=== PATIENT | male | born 1945 | race Caucasian/White ===

== ENCOUNTER 2019-01-06 00:01 | Inpatient (IN) | payer OTHER, BC ==
[~2019-01-06] VITALS: Ht 190.5 cm; Wt 71.7 kg
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
[~2019-01-06 00:01] MED LIST: ASPIR 8181 MG PO; CARVEDILOL25 MG PO; LOPRESSOR25 PO
[2019-01-06] MEDS ORDERED: CELEXA20 MG PO (00:56)
[2019-01-06] MEDS ORDERED: NAMENDA 10 MG T10 MG PO (00:58)
[2019-01-06] MEDS ORDERED: MIRALAX17 GM PO (00:59)
[2019-01-06] MEDS ORDERED: SENNA8.6 MG PO (01:01)
[2019-01-06] MEDS ORDERED: VITAMIN B-12500 MCG PO (01:03)
[2019-01-06] MEDS ORDERED: TRAMADOL 50 MG50 MG PO (01:04)
[2019-01-06] MEDS ORDERED: TYLENOL EXTRA500 MG PO (01:05)
[2019-01-06] MEDS ORDERED: ATIVAN0.5 MG PO (01:07)
[2019-01-06] MEDS ORDERED: NITROGLYCERIN0.4 MG SUBLING (01:09)
[2019-01-06] MEDS ORDERED: IBUPROFEN 200200 M1 PO (01:13)
--- NOTE | 2019-01-06 02:03 | NUR ---
ADMISSION NOTE; THE PT CAME FROM [facility] VIA AMBULANCE, WITH HIS FAMILY ATTENDING. THE PT IS HERE WITH LEWY BODY DEMENTIA, WHICH HE WAS DIAGNOSED WITH 4 YEARS AGO. HE HAS HAD 2 RECENT FALLS WITHIN THE LAST WEEK. LOST 12 POUNDS WITHIN THE LAST 3 MONTHS. THE PT HAS TO BE FED AT MEAL TIME. THE PT HAS TREMORS AND CAN BECOME AGITATED WITH STAFF AND PEERS. HE IS INCONTINENT AT TIMES. HAS HIS OWN TEETH. THE PT CAME FROM [facility], WHERE HE HAS BEEN FOR A FEW MONTHS, WHEN THIS EMBOSSING PRESS OPERATOR GOT REPORT FROM [facility], THEY STATED THAT HE WOULD BE ABLE TO RETURN TO [facility]. THE PT'S SKIN LOOKS GOOD, HE DOES HAVE FUNGUS ON SEVERAL OF HIS TOES, BOTH FEET. HE IS A RETIRED DOCTOR. PREFERS TO BE CALLED DR. HUDSON. STARTED ON 12 MINUTE CHECKS FOR HIS SAFETY AND APPLIED THE BED ALARM.
[2019-01-06 05:02] VITALS: BP 138/85
[2019-01-06 09:53] VITALS: BP 143/75
--- NOTE | 2019-01-06 14:54 | NUR ---
PATIENT WAS UP AND OUT, SITTING IN DAY ROOM WHEN CARE ASSUME. HE TOOK ALL HIS MORNING MEDICATION WHOLE WITH LOTS OF ENCOURAGMENT FROM STAFF. PATIENT ATE 100% BREAKFAST, SAT IN MORNING GROUP ACTIVITY. PATIENT TOOK INTERMITTENT NAPS THIS MORNING. WHEN FULLY AWAKEN, PATIENT BECAME RESTLESS, PACING AROUND THE UNIT, EXIT SEEKING, STANDING BY THE EXIT DOOR, REFUSES TO LEAVE. PATIENT DECLINE LUNCH, DESPITE ENCOURAGEMENT FROM STAFF. PATIENT BECAME VERY DIFFICULT TO REDIRECT, HE BECAME IRRITABLE AND AGITATED, ATTEMPTING TO SWING AT STAFF. DR. RAINEY PRESENT, GAVE ONE TIME ORDER FOR IM GEODON 10MG. GEODON GIVEN TO LEFT HIP WELL TOLERATED. PATIENT CURRENTLY IN BED FIDGETING, RESPONDING TO INTERNAL STIMULI, TALKING TO SELF AND UNSEEN OTHERS. PATIENT IS UNABLE TO RESPOND APPROPRIATELY TO ASSESSMENT QUESTION DUE TO COGNITIVE IMPAIRMENT. PATIENT IS GROSSLY CONFUSED. WILL CONTINUE TO REDIRECT, AND MONITOR FOR SAFETY.
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
[2019-01-06 19:37] VITALS: BP 120/85
--- NOTE | 2019-01-06 21:46 | NUR ---
ASSUMED CARE OF THE PT AT 191 PM. THE PT WAS SITTING IN THE DAYROOM. REMAINS ON A 1;1 WHEN AWAKE. DISORIENTED X 4. BARELY SPEAKS, TOOK HIS MEDICATION CRUSHED IN ICE CREAM. INCONT. X 1 THIS EVENING. GOT THE PT TO BED WITH THE ASSISTANCE OF ONE, THE PT STOOD UP ON HIS OWN AND WAS ASSISTED TO BED.
--- NOTE | 2019-01-07 02:49 | NUR ---
THE PT APPEARS TO HAVE BEEN SLEEPING MOST OF THE NOC SHIFT, AFTER THE PT WENT TO BED, HE APPEARED TO BE RIGHT TO SLEEP. REMAINS ON 12 MINUTE CHECKS FOR HIS SAFETY.
--- NOTE | 2019-01-07 03:25 | NUR ---
ASSISTED THE PT TO THE BATHROOM WITH THE ASSISTANCE OF TWO, THE PT DID NOT VOID AT THIS TIME. ASSISTED HIM BACK TO BED. HE CLOSED HIS EYES AND APPEARED TO GO TO SLEEP.
--- NOTE | 2019-01-07 06:11 | NUR ---
THE PT SLEPT 7.6 HOURS LAST NIGHT.
[2019-01-07 07:37] VITALS: BP 127/83
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
--- NOTE | 2019-01-07 13:26 | NUR ---
ASSUMED PATIENT CARE AT 0700; PATIENT IN BED,SUPINE POSITION, EYES CLOSED, RESTING COMFORTABLY. PATIENT BEGAN TRYIN TO HIT AIDES THAT WERE ATTEMPTING TO CHANGE HIS WET BRIEF. HE REFUSED TO COOPERATE WITH STAFF, STRIKING THEM AT TIMES. THEN BEGAN TO SCREAM LOUDLY WITHOUT CAUSE. NEW ORDER PER PER FARRAH HENNING 15 MG I.M. stat. SEE EMAR FOR EXACT TIME. PATIENT IMMEDIATELY BECAME DROWSY; LYING IN BED QUIETLY EVER SINCE I.M. CONTINUE TO MONITOR 1:1.
--- NOTE | 2019-01-07 15:00 | NUR ---
PT BLADDER SCANNED AND HAD 820ML URINE IN BLADDER. ATTEMPTED TO STRAIGHT CATH WITH ASSIST FROM AND NURSE AID. PT WAS YELLING AND TRYING TO BITE THE STAFF. UNABLE TO INSERT ANGELES, WITHDRAWN ANGELES AND PT ABLE TO VOID ON OWN. PT HAD FIRM LUMP TO SUPERPUBIC AREA PRIOR TO PATIENT VOIDING. AFTER VOID SUPERPUBIC SOFT.
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
--- NOTE | 2019-01-07 18:25 | NUR ---
NOTE: PATIENT REFUSED A.M. MEDICATIONS AFTER THEY WERE SCANNED AND OPENED. A.M. MEDICATIONS DESTROYED. PATIENT SOMNOLENT FOR AFTERNOON MEDICATIONS. PATIENT AWAKE ENOUGH AND WAS SUCCESSFULLY ENCOURAGED TO TAKE COREG AND SEROQUEL 1800 MEDICATIONS. 1:1 SITTER IS WITH PATIENT, WHO IS AWAKE AT THIS TIME, AND WILL CONTINUE TO BE WITH 1:1 THROUGHOUT THE NIGHT. REPLACEMENT SITTER ARRIVED AT THIS TIME.
[2019-01-07 19:50] VITALS: BP 114/73
--- NOTE | 2019-01-07 22:06 | NUR ---
Patient resting quietly at beginning of shift. Patient took bedtime Tylenol crushed without difficulty. Patient continued to rest quietly until approximately 2130. Sitter 1:1 with patient. Sitter notified nurse that patient started to swing his arms, yell at the corner having AH/VH. Patient attempting to crawl out of bed. Patient assessed. Speaking in word salad, unable to re-direct. Attempted to play music, hold his hand, offer toileting. None of which were helpful. This caused patient to become more agitated and aggressive. Patient provided PRN Seroquel 25mg po. Patient fighting throughout med administration. Unknown how much of Seroquel PO patient received due to him fighting and spitting out medication. PULP MAKING PLANT OPERATOR Aboud notified via phone. Order obtained for Olanzapine 5mg IM 1xdose now. Order placed.
--- NOTE | 2019-01-08 02:14 | NUR ---
Patient restless, making jerking movements, reaching for the air above him. Had his eyes closed but did not appear to be sleeping peacefully. Patient offered urinal several times. One of which he spit in nurses face, attempted to hit and kick nursing staff. Fluids offered but he would attempt to hit and kick staff and start to yell. Patient appeared to reach a period of restful sleep at approximately 0130. Sitter 1:1 at bedside at this time.
[2019-01-08 07:24] VITALS: BP 118/58
--- NOTE | 2019-01-08 10:03 | NUR ---
PATIENT REFUSED TO TAKE A.M. ORAL MEDICATIONS. DR. RAINEY ORDERED 2.5 MG OF OLANZAPINE I.M., ADMINISTERED TO PATIENT AT APPROXIMATELY 0915 A.M. PATIENT PRESENTED REHEATED BREAKFAST, HOWEVER, REFUSED TO TAKE FOOD OR DRINK. SITTING AT D.R. TABLE IN W/C, QUIET AT THIS TIME. OLANZAPINE IS EFFECTIVE, EVIDENCED BY PATIENT'S DROWSINESS.
--- NOTE | 2019-01-08 11:20 | NUR ---
ASSUMED PATIENT CARE AT 0700. PATIENT LYING IN BED IN SUPINE AT THAT TIME.
--- NOTE | 2019-01-08 13:00 | NUR ---
PATIENT REFUSED A.M. MEDICATIONS, WOULD NOT EAT BREAKFAST. ALSO REFUSED DRINK. IM OLANZAPINE, 25 MG ADMINISTERED AT 09:15 A.M., EFFECTIVE, EVIDENCED BY PATIENT BECOMING DROWSY AND MORE CALM. NURSE AND OTHER STAFF WERE SUCCESSFUL IN PATIENT LYING DOWN IN BED FOR THIS NURSE TO GET A BLADDER SCAN; 381 ML IN BLADDER. ABLE TO ADMINISTER P.O. SEROQUEL, PAITIENT WAS OPEN NOUTH BREATHING AND SWALLOWED MED IN YOGURT AT THAT TIME. PATIENT REFUSED LUNCH, OFFERED BY THIS NURSE. ALSO, NURSE ENCOURAGED PATIENT TO ASK FOR A URINAL WHEN NEEDED. WHEN ASKED IF HE NEEDED ONE NOW, HE ANSWERED "YEAH." HOWEVER, WHEN STAFF ATTEMPTED TO PREPARE HIM FOR URINAL, PATIENT BECAME VERY COMBATIVE, PUNCHING, HITTING STAFF, KICKING AT STAFF MEMBERS. LEFT ALONE FOR NOW, WILL ATTEMPT TO STAND PATIENT UP AND ESCORT TO BATHROOM SOON PATIENT IS MORE CALM.
[2019-01-08 20:00] VITALS: BP 111/74
--- NOTE | 2019-01-08 22:10 | NUR ---
Patient in bed upon start of shift. Patient became restless and was requesting a drink at approximately 2014. Patient was assisted with max assist x2 to his w/c. He sat in the dining room and ate 100% ice cream and drank water and apple juice. Patient was experiencing hallucinations, talking to self, grabbing at the air. Patient was provided PM Tylenol with PRN Quetapine 25mg po. Took medication with hesitation.
--- NOTE | 2019-01-08 22:40 | NUR ---
Patient started to appear tired around 2129. Patient assisted to bed with max assist x2. Patient hesitant on assist. Attempting to hit and kick staff. Cursing. Words garbled with word salad present. Sounds as if patient is dictating notes or speaking to others in an operating room regarding procedures. Patient layed down in bed and appeared to be resting for approximately 15 minutes. Patient then started to get out of bed independently, staggering about his room. Anytime he was approached by staff, he would startle easily and start kicking and hitting. Staff x4 attempted to calm resident for approximately 20 minutes which was not effective. MD Liu notified. Order obtained for Geodon 15mg IM 1x dose now for severe agitation. Security notified. 5 staff required to administer IM injection. Patient attempting to kick, hit, scream, curse, spit and bite at staff. Nurse remained 1:1 with patient for approximately 30 minutes after injection administered. Patient offered and assisted with urinal after injection. Resident continued to resist assistance and was not able to urinate. Will continue to offer toileting every 2 hours and PRN. Patient appears to be resting quietly with eyes closed at this time.
[2019-01-08 23:18] VITALS: BP 111/74
--- NOTE | 2019-01-09 06:16 | NUR ---
Patient has slept approximately 6.2 hours throughout the night. Patient woke up at least once an hour for only a couple minutes. At those times he would appear startled, agitated, lethargic, tense. He would then lay back down and fall asleep without difficulty. Patient has been kicking his legs and talking in his sleep. Lab arrived to draw blood this AM. Blood was drawn with staff assist x2 without difficulty. Orders reviewed. MD ordered to d/c Seroquel PRN, Seroquel scheduled; start Zyprexa 2.5mg po BID; start Zyprexa 5mg IM q6 hours PRN for agitation.
[2019-01-09 06:19] LABS: CALCIUM 9.4 mg/dL (8.5-10.1); CREATININE 0.8 mg/dL (0.7-1.3); POTASSIUM 3.8 mmol/L (3.5-5.1)
[2019-01-09 07:00] VITALS: BP 146/86
--- NOTE | 2019-01-09 10:57 | NUR ---
0720: Report rec from noc shift, care assumed. Pt combative with staff, kicking, hitting at staff when attempting to give ADL's. Zyprexa 5mg, IM given in Lt deltoid for agitation, assisted by staff x2. Dressed and assisted to w/c, difficult to transfer due to resistance against staff.
[2019-01-09 20:05] VITALS: BP 135/79
--- NOTE | 2019-01-09 21:14 | NUR ---
Pt in day room in w/c with lap huber in place. Pt propeling self in w/c around the day room, picking at air and at tables. Pt was compliant with medication and hs snack. Pt talking to self and to staff, speech garbled, poor eye contact.
--- NOTE | 2019-01-09 23:24 | NUR ---
Pt resistive to w/c being manuvered to room, but he did lift his legs. Pt talking to himself and staff garbled but medical orders and medications were able to be heard. Pt very resistive to shirt being removed even with explaination, attempting to grab and hit at staff. Pt did curse at staff once. However pt was compliant with new gown being placed on. Pt compliant with standing but resistive to sitting on bed. Pt did lay self in bed, but started grabbing at pants and kicking legs once pants were being removed. Pt was incontinent x1, initially resistive to pericare but then compliant.
--- NOTE | 2019-01-10 05:31 | NUR ---
Pt had not urinated, he did awaken x 2 throughout the night but returned to sleep. Bladder scanned pt 412. Once nurse had returned from returning bladder scan, pt had urinated in bed. Pt was very compliant with adl care, changing gown and sheets.
--- NOTE | 2019-01-10 07:00 | NUR ---
Intergluteal cleft slit 1cm x 0.25x 0.1. Barrier cream applied. Will have day shift f/u with dr during rounds.
[2019-01-10 07:05] VITALS: BP 135/89
--- NOTE | 2019-01-10 09:21 | NUR ---
[id number]: Report rec from noc shift, care assumed. Up in w/c, self propels to DR, feeds self with set-up assistance. Takes meds whole w/o difficulty, occasional episodes of yelling out in agitation while in DR. Reassessment completed, denies pain @ this time.
--- NOTE | 2019-01-10 09:46 | NUR ---
[id number]:Report from [facility] shift, care assumed. Assisted x2 to w/c from bed, fairly cooperative with staff during care. Feeds self with encouragement and set-up assistance. Intermittent episodes of garbled speech, answers to name with brief eye contact noted. Takes meds crushed in pudding, appetite fair. Chair alarm in place, lap huber on. Attemnded group but unable to participate due to confusion, disrupts group with continous talking.
--- NOTE | 2019-01-10 15:37 | NUR ---
Date of Admission: 01/06/19 Date of Activity Therapy Assessment: 01/09/2019 Activity Goal: 1:1 session a day Initial Goal: Patient will participate in one 1:1 recreational therapy session per day, as tolerated, until discharge. Weekly progress towards goal:Did not achieve Group participation level:Minimal Behaviors observed: Disoriented. Talking to self. Disorganized and off topic thoughts. Loud yelling towards staff. Struggles to follow direction. Plan: No change towards goal
[2019-01-10 19:35] VITALS: BP 122/84
--- NOTE | 2019-01-10 20:52 | NUR ---
Pt in w/c in day room with lap huber intact. Pt fidgeting in chair with socks, picking at the air, talking quietly to himself. Soft speech and eye contact when staff approaches. Pt compliant with med and hs snack. Pt compliant with aid placing his socks back on.
--- NOTE | 2019-01-10 23:21 | NUR ---
Pt was yelling noise and hitting during transfer to bed from w/c. Pt hitting and kicking once in bed when changing brief and clothes. After adl care provided pt was no longer combative. Pt continues with conversation that is garbled and references medical words and work. Incontinent x 1.
--- NOTE | 2019-01-11 05:42 | NUR ---
Pt compliant with am pericare, not combative. Incontinent x1. Barrier cream to intergluteal cleft abrasion.
[2019-01-11 07:00] VITALS: BP 150/103
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
--- NOTE | 2019-01-11 12:51 | NUR ---
SW met with dght and JULIETTE per their request. They had concerns about the plan of care and discharge. SW and family discussed possible outcomes that included moving pt into a memory care LTC nearer their home. This would allow for them to visit more frequently. Sw suggested that they begin to look into those communities right away, and to let SW know so a referral can be sent. They would also like to have hospice services initated upon d/c. Family is flexible and willing to cooperate with LTC and staff. SW encouraged them to call on Saturday and set up a family meeting with the DR and SW. SW provided education regarding role of hospice and the d/c process. Family seemed relieved with the information. SW also provided them with a current list of meds, and DX.
[2019-01-11 14:59] VITALS: BP 122/84
[2019-01-11 20:15] VITALS: BP 128/85
--- NOTE | 2019-01-12 02:09 | NUR ---
IN DAYROOM SITTING IN WHEELCHAIR TEARING UP NEWSPAPER UPON INITIAL ASSESSMENT AT 1930-NOTED TO RESTLESS,HANDS CONSTANTLY MOVING-GRABBING ONTO OR PICKING AT FIDGETING WITH PANTS,WHEELCHAIR ARMS,GOWN, INCONTINENT PADS IN CHAIR,OBJECTS ON TABLE ETC. SPEECH IS SOFT AND DIFFICULT TO HEAR BUT WHEN GREETED BY THIS RN AND I INTRODUCED MYSELF HIS NURSE STATES "WELL GRAB THAT NEEDLE AND SEE IF YOU CAN GET IN THE BRACHIEL ARTERY" THEN CONVERSATION BECOMES INCOHERENT,RAMBLING BUT APPEARS TO BE REFERING TO MEDICAL PROCEDURES HE HAS PERFORMED IN THE PAST. HS MEDICATIONS CRUSHED AND PUT IN PUDDING-INITALLY REFUSED TO OPEN MOUTH AT ALL FOR PUDDING OR ICE CREAM-SPIT OUT APPROX. 1/2 OF MEDS/PUDDING MIXTURE AND BECAME INCEASINGLY AGITATED WITH REPEAT ATTEMPTS TO COAX HIM INTO TAKING HS MEDS IN PUDDING. ASSSITED TO BED AT APPROX 2200-INCONTINENT OF LARGE AMOUNT URINE,PERICARE COMPLETED,BARRIER CREAM APPLIED AND ASSISTED BY THREE STAFF TO LAY DOWN IN BED. WAS VERBALLY AGITATED DURING HS CARES AND GRABBED ONTO WET DEPENDS AND PANTS BUT DID NOT STRIKE OUT AT NURSING STAFF. AT 2215 ALERTED BY ELECTRO MECHANICAL SOLAR TECHNICIAN THAT MR HUDSON WAS SITTING AT SIDE OF BED-WAS COMBATIVE WITH ATTEMPTS TO REPOSITION OR TOILET-ZYPREXA 5MG GIVEN IM IN LEFT DELTOID.
[2019-01-12 07:10] VITALS: BP 146/69
[2019-01-12 11:17] VITALS: BP 146/69
--- NOTE | 2019-01-12 11:22 | NUR ---
ASSUMED CARE AT 0700 THIS MORNING. PT. IN BED AT THAT TIME. PEST CONTROL CHEMICAL TECHNICIAN, TARYN, GOT PT. UP TO BATHROOM AND TO CHANGE HIS CLOTHING. PT. NEEDING LOTS OF REDIRECTION TO GET PT. TO COOPERATE AND DO WHAT IS NEEDED. PT. DID RESPOND WITH LOTS AND LOTS OF REDIRECTION AND ASSISTANCE. HE CONTINUALLY MUMMBLES INCOHERIENTLY.
--- NOTE | 2019-01-12 14:33 | NUR ---
SIS spoke with Jed for [facility]. She mention that she wanted to evaluate the pt on today at 3:00pm. SIS faxed over the D/C notes for the pt to [phone] per Jocelyne request. SIS will follow-up with pt upon discharge.
[2019-01-12 23:02] VITALS: BP 146/69
[2019-01-12 23:06] VITALS: BP 146/69
[2019-01-13 04:06] VITALS: BP 128/98
--- NOTE | 2019-01-13 04:42 | NUR ---
PT IN BED AND SOMEWHAT RESTLESS AT [facility]. NOTED THAT RESLESSNESS IS DIRECTLY RELATED TO INCONTINANT EVENT. 3 EPISODES DURING THE NIGHT, INCLUDING LINEN CHANGE. STILL OCCASIONALLY COMBATIVE WHEN WORKING WITH HIM PHYSICALLY. ACTIVELY HALLUCINATING. RAMBLING INCOHERANT WORD SALAD. SLEPT INTERMITTANTLY THROUGH THE NIGHT. CURRENTLY RESTING QUIETLY.
[2019-01-13 07:39] VITALS: BP 102/67
--- NOTE | 2019-01-13 09:14 | NUR ---
[id number]: Report rec from noc shift, care assumed. Resting in bed, no distress noted. Assisted to w/c by staff x2, minimal cooperation from pt with transfer. To via w/c, huber belt on for safety and to remind pt to not transfer w/o assist. Pt fed by staff, meds given crushed in yogurt, no swallowing problems noted. Observed pt grabbing into air, speech garbled with no specific topic noted.
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
[2019-01-13 10:07] VITALS: BP 102/67
--- NOTE | 2019-01-13 17:18 | NUR ---
SIS spoke with pt son micki concerning pt discharge on next week. Micki mention that he would like a referral sent to [facility]. SIS mention that she will send a referral on January 14, 2019. SIS will follow-up with the family upon discharge.
--- NOTE | 2019-01-13 23:26 | NUR ---
Pt in w/c in day room talking to himself, lap huber on. Pt compliant with meds and ice cream, he needs to be fed. Pt physically combative, hitting, kicking yelling during hs adl care. Pt was also yelling out loud noises during adl care. After care completed pt is calm and resting in bed. Incontinent x 1.
[2019-01-14 09:30] VITALS: BP 145/81
--- NOTE | 2019-01-14 12:01 | NUR ---
ASSUMED PATIENT CARE AT 0715. PATIENT IN BED AT THAT TIME. PROFESSOR OF EDUCATION'S X 2 ASSISTED PATIENT UP FOR BREAKFAST. PATIENT OBSERVED COMBATIVE WITH STAFF FOR ADL'S. SITTING UP IN W/C. ATE VERY LITTLE BREAKFAST, LESS THAN 25%. NURSE CRUSHED MEDS, PLACVED IN ICE CREAM SO THAT PATIENT WOULD BE COMPLIANT WITH MEDICATIONS.
--- NOTE | 2019-01-14 16:25 | NUR ---
SIS faxed the referral to admission. SIS faxed to [facility]. SIS attention it to Cinda, and the fax number was [phone]. SIS will follow-up with the referral on December.
--- NOTE | 2019-01-14 17:50 | NUR ---
PATIENT OBSERVED VERBALLY AGGRESSIVE WHEN COMING OUT TO D.R. FOR DINNER. ALSO, SHOVED HER W/C INTO TABLE, ANGRY LOOK ON HER FACE. DR. RAINEY ORDERED INCREASE IN ZYPREXA TO 5 MG FROM 2.5 MG Q 4HRS, P.O. OR IM PRN. NURSE ADMINISTERED ZYPREXA 5 MG PO AT 1745 P.M. FOR INCREASED AGITATION. DINNER IN FRONT OF HER, HAD STOPPED EATING; HOWEVER, SHE BEGAN TO EAT MORE, STATING THAT SHE NEEDED TO EAT TO TAKE HER MEDICATION. SOCIALIZING WITH FEMALE PEER AT HER TABLE.
[2019-01-14 19:37] VITALS: BP 136/92
--- NOTE | 2019-01-14 22:17 | NUR ---
Pt in wheel chair with lap huber on in day room. Pt did need to be assisted to sitting position, he was slouching and leaning in backwards in w/c. Pt was combatinve hitting, kicking with adl care but no screaming. Pt remains incontinent. Pt was complaint with medications and ice cream. Speech remains garbled, not comprehensible sentences, good eye contact.
[2019-01-15 10:37] VITALS: BP 103/66
--- NOTE | 2019-01-15 10:38 | NUR ---
PATIENT UP AND ON UNIT THIS MORNING. ASSISTED WITH TOLLETING AND BREAKFAST. WAS ABLE TO FEED ONESELF BUT NEEDED ENCOURAGEMENT - APPETITE FAIR ATE ABOUT 50 % OF HIS MEAL. VERY RESTLESS - FIGGITY IN CHAIR. TALKS ALOUD - STATEMENTS MAKE NO SENSE - RAMBLES ON. STATED WAS THIRSTY AND GIVEN WATER. TOOK MEDICATIONS WITHOUT INCIDENCE. PATIENT EXTREMELY CONFUSED AND BECOMES EASILY IRRITATED WHEN REDIDRECTED OR ASSISTED WITH CARES AT TIMES. SAT IN ON MORNING GROUP BUT LITTLE PARTICIPATIONS OR RESPONSE TO QUETIONS ADDRESSED TO HIM. WILL CONTINUE TO MONITOR AND MAINTAIN SAFETY AND CARES.
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
--- NOTE | 2019-01-15 18:47 | NUR ---
SIS met with Iker (GUADALUPE), and Tanisha from [facility]. Tanisha, was able to discuss how [facility] will be able to provide care to his family. Iker was able to ask questions. Iker mention that he would like to meet with [facility] as well to schedule an consultation. SIS will schedule appointment on January 16, 2019.
[2019-01-15 19:52] VITALS: BP 137/88
[2019-01-15 23:03] VITALS: BP 137/88
--- NOTE | 2019-01-16 01:26 | NUR ---
PT UP IN WC AT [facility]. RESTLESS AND ATTEMPTING TO GET OUT OF CHAIR. BECOMES COMBATIVE WHEN STAFF ATTEMPTS TO ALTER HIS POSITION. RETURNED TO BED. INCONTINANT OF URINE AND STOOL. PT CLEANED. SMALL SKIN TEAR NOTED ON COCCYX. PHOTO TAKEN OF AREA AND WOUND CONSULT DONE.
[2019-01-16 07:20] VITALS: BP 136/80
--- NOTE | 2019-01-16 11:04 | NUR ---
WOUND CONSULT; ASSESSMENT OF THIS PATIENT REVEALS A STAGE 2 PRESSURE ULCER TO THE COCCYX MEASURES .2 X .2 X 0.1 PATIENT IS INCONTINENT X 2. THE PATIENT IS COMBATIVE. SEROUS DRAINAGE SMALL WITH NO S/S OF INFECTION. RECOMMENDATION; BARRIER CREAM IS APPROPRIATE AT THIS TIME DAILY/PRN AFTER INCONTINENT EPISODES. LIMIT TIME UP IN CHAIR AND USE PILLOWS TO OFFLOAD ALTERNATING SIDES. DISCUSSED WITH RN
[2019-01-16 12:51] VITALS: BP 146/76
[2019-01-16 13:16] LABS: CALCIUM 9.9 mg/dL (8.5-10.1); CREATININE 0.8 mg/dL (0.7-1.3)
--- NOTE | 2019-01-16 13:59 | NUR ---
ASSUMED CARE AT 0700 THIS MORNING. PT. COMBATIVE WITH STAFF WHEN THEY ATTEMPTED TO CLEAN UP HIS SATINDER AREA. UP IN W/C FOR MEALS, AM GROUP. HE THEN WAS SEEN BY WOUND CARE. AREA WAS CLEANSED AND BARRIOR CREAM APPLIED. NEW GARMENTS PUT ON PT. HE LAID DOWN IN THE AFTERNOON AND AGAIN HIS SATINDER AREA WAS CLEANED UP. PT. VERY COMBATIVE WITH THIS PROCESS. ONCE HE WAS CLEANED UP BARRIOR CREAM APPLIED TO REDDENED AREA. REDDENED AREA NOTED TO HIS RIGHT GROIN IN INGUINAL AREA, CREAM APPLIED TO THIS AREA ALSO. HE IS EATING FAIR AT MEALS, WITH SOME ASSISTANCE OF STAFF. MEDS CRUSHED AND PLACED IN ICECREAM. PT. ATE THIS.
--- NOTE | 2019-01-16 15:22 | NUR ---
SIS called in spoke with Aida at [facility]. Aida mention that someone will be calling me to schedule the time for next week. SIS will follow-up on Sunday, January 20, 2019.
[2019-01-16 21:11] VITALS: BP 116/75
[2019-01-17 00:40] VITALS: BP 116/75
--- NOTE | 2019-01-17 02:44 | NUR ---
PT UP IN WC AT [facility]. RESTLESS. SQUIRMING AROUND IN WC, AND PICKING AT THE AIR. RETURNED TO ROOM AND BED. INCONTINANT OF URINE AND FECES. CLEANED, CHANGED AND PROTECTIVE OINTMENT APPLIED TO REDDENED AREAS OF SKIN IN PERIANAL AREA. VERY RESTLESS AND COMBATIVE DURING PROCESS. ONCE CLEANED, SETTLED AND SLEPT WELL.
--- NOTE | 2019-01-17 09:08 | NUR ---
ASSUMED CARE AT 0700 THIS MORNING. PT. IN BED. GREEN PLUMBER'S X 2 GOT PT. CHANGED AND UP IN W/C. HE CAME ONTO THE UNIT TO EAT BREAKFAST. HE BECOMES EASILY AGITATED WHEN STAFF ATTEMPTS TO WORK WITH HIM IN ANY CAPACITY (GIVING HIM MEDICATIONS, CHANGING HIM, MOVING HIM OR EVEN FEEDING). HE SWATS AT STAFF, SHOVES THEIR HANDS AWAY AND DOUBLE UP HIS FISTS AND HITS THEM. HE CAME ONTO THE UNIT FOR MEALS, BUT EATS ONLY FAIRLY. UNABLE TO DETERMINE IF HE IS HAVING [facility]. NO S/S SI/HI NOTED.
[2019-01-17 09:53] VITALS: BP 121/68
[2019-01-17 11:00] VITALS: BP 112/68
[2019-01-17 20:03] VITALS: BP 118/68
--- NOTE | 2019-01-17 23:55 | NUR ---
PT LYING IN BED. COMBATIVE--IMPULSIVE. CURENTLY RESTING COMFORTABLY. WILL CONTINUE TO PROVIDE FREQUENT OBSEVRATION/.
[2019-01-18 07:20] VITALS: BP 112/68
[2019-01-18 11:00] VITALS: BP 140/81
--- NOTE | 2019-01-18 11:23 | NUR ---
ASSUMED CARE AT 0700 TODAY. PT. IN BED. UP IN W/C FOR MEALS AND GROUPS. PT. VOICE VERY SOFT WHEN HE TALKS. HE DOES NOT MAKE SENSE WHEN HE TALKS, OFTEN HE TALKS IF HE IS DICTATING ON A PATIENT, OR DOING A PROCEDURE. MIRANDA SI/HI. TOOK HIS MEDICATIONS CRUSHED IN ICE CREAM WITHOUT PROBLEMS NOTED. HE WILL BECOME COMBATIVE WHEN STAFF ATTEMPTS TO REMOVE HIS WET/DIRTY GARMENTS AND CLEAN HIM UP. HE HAS BEEN ON THE UNIT MUCH OF THE MORNING WITHOUT PROBLEMS NOTED.
[2019-01-18 19:42] VITALS: BP 115/74
--- NOTE | 2019-01-18 20:17 | NUR ---
PT VERY AGITATED AND COMBATIVE AT [facility]. TRYING TO GET OUT OF BED. WITH ASSIST, CHLORPROMAZINE 12.5MG IM TO RT BUTTOCK. CHECKED 15 MIN LATER, GOOD RESULTS. RESTING QUIETLY.
[2019-01-19 00:45] VITALS: BP 115/74
[2019-01-19 00:48] VITALS: BP 115/74
--- NOTE | 2019-01-19 04:08 | NUR ---
PT CONTINUES TO BE RESTLESS AND COMBATIVE WHEN IN PHYSICAL CONTACT WITH STAFF ATTEMPTING TO GIVE PERSON CARE, BATHING AND CLEANUP. INCONTINANT OF URINE AND STOOL. RAMBLING INCOHERANT SPEECH, MIXED WITH OCCASIONAL EXPLETIVES.
[2019-01-19 08:00] VITALS: BP 103/69
--- NOTE | 2019-01-19 09:39 | NUR ---
assumed pt care this am . report received from night nurse. pt is naked in bed, combative, aggresive attitude. on ra . nursing staff transfered pt in wheelchair. one dose of IM shot was given see emar. pt then calmed down and let staff clean him. he had had a loose bowel movement in bed and was cleaned before breakfast. after settling down. nurse was able to tkae pt vital signs. medication given during breakfast time. pt remains uncooperative and demanding and needs persistence and consistency to have him comply. pt is now sitting in activity room with clothes on. will continue to monitor
--- NOTE | 2019-01-19 15:50 | NUR ---
pt was getting agitated after lunch and visting hours. second shot given. see e mar. pt currently laying in bed sleeping. will continue to monitor
[2019-01-19 16:30] VITALS: BP 150/86
[2019-01-19 19:42] VITALS: BP 121/93
--- NOTE | 2019-01-19 21:38 | NUR ---
Pt compliant with medication and hs snack, resitive to adl care yelling loundly, kicking, hitting. Poor eye contact and slouched in w/c, rambles to self, speech unclear.
--- NOTE | 2019-01-20 03:03 | NUR ---
the pt was sitting on the edge of the bed, assisted him back up in the bed, the pt has a small bm at this time. remains on 12 minute checks for his safety.
--- NOTE | 2019-01-20 05:41 | NUR ---
the pt slept 7.4 hours last night.
[2019-01-20 09:53] VITALS: BP 121/93
--- NOTE | 2019-01-20 10:11 | NUR ---
ASSUMED CARE AT 0700 THIS MORNING. UP ON UNIT DREESSES FOR MEALS. SITTING THE BACK TABE DURING THE MORNING GOUP. HE REEMAINS COMBATIVE WHEN STAFF ATTEMPTS TO WORK WITH HIM 1:1. HE CONTINUES TO KICK AND PUNCH STAFF. HE REFUSED TO EAT ANY BREAKFAST THIS MORNING EVEN WITH ASSISTANCE OF STAFF. CONTINUES TO BE CONFUSED. ORIENTED TO HIS NAME ONLY.
--- NOTE | 2019-01-20 11:01 | NUR ---
SW schedule a meeting with [facility] on January 20, 2019 at 3:30pm. SW will follow-up with the family upon discharge.
--- NOTE | 2019-01-20 16:44 | NUR ---
Yamileth from [facility] met with pt davey Dong concerning consultation. SW will follow-up with pt to see if he chose the best and appropriate hospice agency on January 21, 2019.
--- NOTE | 2019-01-20 21:37 | NUR ---
Pt sitting in w/c in day room, slouched, relaxed, lap huber on. Pt quietly mumbling to himself. Compliant with hs meds and snack. Poor eye contact. Pt continues to yell loudly hit and kick with adl care regarding changing clothes and going to bed. Barrier cream to coccyx wounds, nystatin to groin.
[2019-01-20 22:07] VITALS: BP 140/90
--- NOTE | 2019-01-20 23:45 | NUR ---
Pt has had 3 stools at this time.
[2019-01-21 10:36] VITALS: BP 129/94
--- NOTE | 2019-01-21 10:48 | NUR ---
ASSUMED ANDRAE AT 0700 THIS MORNING. PT. IN BED BUT STAFF GOT HIM UP AND DRESSED PLACED IN HIS W/C AND ON THE UNIT FOR MEALS, GROUPS. HE DOES NOT PARTICIPATE IN GROUPS BUT WILL SIT QUIETLY. DAUGHTER VISITED AND BRIEFLY TALKED TO DR. RAINEY. HE DOES SEEM TO RESPOND TO SOME INTERNAL STIMULI. HE IS ORIENTED X1
--- NOTE | 2019-01-21 10:54 | NUR ---
I was called out of treatment team due to an upset family memeber. Krish's daughter was here sharing concerns about her father. She asked me what I knew about her father. I apologized and explained I was on sick leave when he was admitted. She asked "Is this about you or him?" My response was "him of course." I shared with her what I knew of her father, that he was combative, incontinent, has had falls, needs help feeding himself and is unable to care for himself. She is concerned that he has declined. She stated that her father was able to walk and talk before he was admitted, and now he is in a w/c. She wanted to know what we are going to do for her father. Dr. Liu was available to speak to her.
--- NOTE | 2019-01-21 12:01 | NUR ---
SW faxed over the update notes to Jocelyne. SW mention that will be d/c on January 22, 2019. SW will follow-up with [facility], and family upon discharge. Pt was appropriate for [facility].
--- NOTE | 2019-01-21 15:42 | NUR ---
1015: Dtr here to visit pt. Dtr began to voice to this show card writer that she was concerned about her dad and that "he will be moving from here or I'm just afraid he won't make it." "He needs to go some place else where he will be safe." Educated dtr about dz process and expectations of dz. Dtr stated "I know, but somewhere there is a place that can help him, but not here." Update given to unit body former who reported off [facility].
--- NOTE | 2019-01-21 16:43 | NUR ---
SIS sent a fax to Cinda concerning admission into [facility]. Cinda requested the last 3 business days notes. Cinda mention that she will come into the [facility] to assess the pt for care. SIS will follow-up with pt upon discharge.
[2019-01-21 20:12] VITALS: BP 150/98
--- NOTE | 2019-01-21 22:24 | NUR ---
Pt resting in bed upon arrival to shift. Pt remains incontinent. Barrier cream to coccyx and nystatin. Pt repositions self frequently and staff as well during rounding. Pt compliant with hs meds and hs snack. Pt remains physically combative hitting, kicking, biting, grabbing during adl care.
[2019-01-22 08:45] VITALS: BP 138/95
[2019-01-22] MEDS ORDERED: COREG6.25 MG PO (08:50)
[2019-01-22] MEDS ORDERED: ASPIR 8181 MG PO (08:51)
[2019-01-22] MEDS ORDERED: COLACE 100 MG100 MG PO (08:52)
[2019-01-22] MEDS ORDERED: CHLORPROMAZINE25 M1 PO (08:52)
[2019-01-22] MEDS ORDERED: NYAMYC15 GM TOP (08:55)
[2019-01-22] MEDS ORDERED: B-12500 MCG PO (08:56)
--- NOTE | 2019-01-22 10:21 | NUR ---
Patient Name: DARLENE HUDSON Admission Date: 01/06/19 DISCHARGE PLAN: Pt will d/c to [facility]. Care Assessment: Pt was assessed Dr. Liu, and diagnosed with Major Neurocognitve Disorder. Pt is appropriate for hospice. Level II Assessment: None Transportation: Pt will be transport by [employer]. Special Instructions/Notes: Dr. Liu reccommended that pt be placed in a memory care unit, and he consulted for hospice. DISCHARGE TO FACILITY: Memory Care unit Facility: [facility] Fax: Address: [address] [place] [id number] Contact Name: Chayito PCP: MERNA Psychiatrist: KORI Psychiatrist
--- NOTE | 2019-01-22 10:54 | NUR ---
WOUND CARE FOLLOW UP; WOUND SHOWS IMPROVEMENT. GRANULATION TISSE NOTED. NO S/S OF INFECTION. D/C IS [facility] TODAY. RECOMMENDATION; CONTINUE CURRENT PLAN DISCUSSED WITH RN
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
--- NOTE | 2019-01-26 01:18 | D ---
[facility] [place] [address] DISCHARGE SUMMARY Name: DARLENE HUDSON Room #: 518B-B [facility] IN M.R.#: [id number] Admission: 01/06/19 ������������������ Attend Phys: Raul Liu DO Discharge: 01/22/19 ������������������ Date of : 41 Report #: [id number] THIS REPORT FOR: //name// CC: Raul Liu [facility] unknown DATE OF SERVICE: 01/22/2019 ATTENDING PHYSICIAN: Raul Liu DO. PRESSURE WASHER AT THE TIME OF DISCHARGE: Raul Ibrahim MD. 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 Medical comorbidities include hematuria resolved; coronary artery disease; hypertension, stable; low BMI as well. He is being discharged to the [facility] in [place]. Psychiatric medical care per that facility. The patient will be receiving hospice services as well. I am not sure of the hospice agency. LABORATORY DATA: Recent laboratories from 01/16/2019, sodium 143, potassium 4.7, chloride 106, bicarbonate 29, BUN 43, estimated GFR 94, creatinine 0.8. IMAGING ON THIS ADMISSION: None. DIET: Regular with Ensure 1 with meals. DISCHARGE MEDICATIONS: Coreg 6.25 mg p.o. b.i.d. with meals for hypertension, aspirin 81 mg p.o. daily, Thorazine 25 mg p.o. b.i.d., docusate 100 mg p.o. daily, nystatin 1 gram topical t.i.d. for 7 more days and discontinue, vitamin B12 500 mcg oral daily for supplementation. REASON FOR ADMISSION: Aggressiveness, irritability, assaultiveness, resistance with cares in nursing facility. HOSPITAL COURSE: The patient was initially started on Depakote and olanzapine regimen. This did not prove efficacious. With their consent, I moved him to chlorpromazine 12.5 mg p.o. t.i.d. There was increase sedation with chlorpromazine regimen but much better behvaioral control with cares. PHYSICAL EXAMINATION: VITAL SIGNS: At time of discharge are as follows: Temperature 36.2, pulse 99, respirations 16, BP 138/95, O2 sat 100%. MENTAL STATUS EXAMINATION: This is a well-developed, thin male, wearing glasses. Attention limited. Concentration limited. Speech difficult [facility] [address] [place] [address] DISCHARGE SUMMARY Name: DARLENE HUDSON Room #: 518B-B [facility] IN M.R.#: [id number] Admission: 01/06/19 ������������������ Attend Phys: Raul Liu DO Discharge: 01/22/19 ������������������ Date of : 41 Report #: [id number] to interpret. No psychomotor agitation or psychomotor retardation. Denied auditory, visual or tactile hallucination. Denies suicidal intent or plan. Insight limited. Judgment limited. Fund of knowledge below average. Prognosis for this patient is guarded given need for memory care placement. ��������������������������������������������� <ELECTRONICALLY SIGNED> ���������������������������������������� By: Raul Liu DO ��������������������������������������������� 01/26/19 0118 [id number] [id number] Raul Liu, /nt
== END 2019-01-22 12:45 | DRG 57 ==
LOC: SBH
PROVIDERS: ADMIT Psychiatry & Neurology Psychiatry
DX: G31.83 Neurocognitive disorder with Lewy bodies (principal); E44.0 Moderate protein-calorie malnutrition; Z68.1 Body mass index [BMI] 19.9 or less, adult; F01.51 Vascular dementia, unspecified severity, with behavioral disturbance; I10 Essential (primary) hypertension; Z66 Do not resuscitate; I25.10 Atherosclerotic heart disease of native coronary artery without angina pectoris; K21.9 Gastro-esophageal reflux disease without esophagitis; M19.90 Unspecified osteoarthritis, unspecified site; R31.9 Hematuria, unspecified; Z87.442 Personal history of urinary calculi; Z95.1 Presence of aortocoronary bypass graft; Z95.5 Presence of coronary angioplasty implant and graft; Z79.82 Long term (current) use of aspirin; Z79.899 Other long term (current) drug therapy; Z91.81 History of falling
CPT/HCPCS: 10880